=== PATIENT | female | born 1950 | race Caucasian/White ===

== ENCOUNTER → 2024-09-24 10:26 | Outpatient (REF) | payer OTHER, SELFPAY | LOC: HWRAD 10:26 | PROVIDERS: ATTENDING PHYSICIAN Obstetrics & Gynecology; FAMILY PHYSICIAN Family Medicine | DX: R10.2 Pelvic and perineal pain (principal); N81.2 Incomplete uterovaginal prolapse | CPT/HCPCS: 76830; 76856 ==

== ENCOUNTER 2025-02-03 05:45 | Day surgery (SDC) | payer OTHER, SELFPAY ==
[2025-01-21 11:01] LABS: Hematocrit 41.1 % (37.0-47.0); Hemoglobin 14.2 g/dL (12.0-16.0); Mean Corp Hgb Conc. 34.5 g/dL (33.0-37.0); Mean Corpuscular Volume 95.1 fL (81.0-99.0); Platelet Count 295 10^3/uL (130-400); Red Cell Dist. Width 12.7 % (11.5-14.5)
[2025-01-21 11:26] LABS: Blood Urea Nitrogen 19 mg/dl (7-17); Calcium 9.2 mg/dl (8.4-10.2); Carbon Dioxide 26 mmol/L (22-30); Chloride 107 mmol/L (98-107); Glucose 109 mg/dl (70-99); Potassium 4.6 mmol/L (3.5-5.1); Sodium 141 mmol/L (135-145); eGFR 53.06
[2025-01-21 14:15] VITALS: BMI 28.1
--- NOTE | 2025-01-23 15:07 | PTCARENOTE ---
Abnormal EKG reviewed by Dr. Armstrong, no further action requested.
--- NOTE | 2025-01-30 08:39 | SUR.OPER ---
Patients 01/21 Creat 1.1, GFR 53.06- Shanel @ Dr. Blankenship office notified
[2025-02-03] VITALS (14 sets, daily range): BP systolic 111–148; BP diastolic 58–80; BMI 28.1
[2025-02-03] MEDS: HEPARIN 5000 UNITS SC (06:32)
[2025-02-03] MEDS: NORMOSOL-R/PLASMALYTE-A 1000 IV (06:32)
[2025-02-03] MEDS: EMEND 40 MG PO (06:45)
[2025-02-03] MEDS: TRANSDERM-SCOP 1 PATCH TRANSDERM (06:46)
[2025-02-03] MEDS: TORADOL 15 MG IV (11:06)
[2025-02-03] MEDS: TYLENOL 650 MG PO (13:34)
== END 2025-02-03 13:35 | disposition home or self-care (01) ==
LOC: SDS 05:45
PROVIDERS: ATTENDING PHYSICIAN Obstetrics & Gynecology; FAMILY PHYSICIAN Family Medicine
DX: N81.3 Complete uterovaginal prolapse (principal); N84.0 Polyp of corpus uteri; N83.292 Other ovarian cyst, left side; N83.8 Other noninflammatory disorders of ovary, fallopian tube and broad ligament; N95.8 Other specified menopausal and perimenopausal disorders; N39.3 Stress incontinence (female) (male)
CPT/HCPCS: 57425; 58571; 57250; 36415; 80048; 85027; 86850; 86900; 86901; 88305; 93005; C1763; J1580